=== PATIENT | male | born 1985 | race Asian ===

== ENCOUNTER 2017-11-28 20:51 | Emergency (ER) | payer OTHER ==
[~2017-11-28] VITALS: Ht 165.1 cm; Wt 68.0 kg
[2017-11-28] MEDS ORDERED: PERTUSS(ACELL),DIPH,TET VAC/PF 0.5 ML VIAL IM ONE (21:45)
[2017-11-28 21:58] VITALS: BP 133/81
== END 2017-11-28 22:03 | disposition home or self-care (01) ==
LOC: EMS 20:53
DX: S00.212A Abrasion of left eyelid and periocular area, initial encounter (principal); S00.211A Abrasion of right eyelid and periocular area, initial encounter; J45.909 Unspecified asthma, uncomplicated; X58.XXXA Exposure to other specified factors, initial encounter; Y93.89 Activity, other specified; Y92.098 Other place in other non-institutional residence as the place of occurrence of the external cause; Y99.8 Other external cause status
CPT/HCPCS: 90715; 99281